=== PATIENT | female | born 1990 | race Hispanic/Latino ===

== ENCOUNTER 2018-11-11 13:43 | Emergency (ER) | payer SELFPAY ==
[2018-11-11 14:43] VITALS: BP 117/83
--- NOTE | 2018-11-11 17:50 | Emergency Department Report ---
ED Fever HPI - General Chief Complaint: Fever Stated Complaint: FLU SYMPTOMS Time Seen by Provider: 11/11/18 17:04 - History of Present Illness Initial Comments: Patient is a 28-year-old white female who presents for URI head congestion and sinus pain and pressure cough ear pain sore throat 4 days states multiple multiple family members with same symptoms including child and treated here today this patient does not have a history of asthma or bronchitis there is no wheezing there is no shortness of breath there is no chest pain or complaints bilateral ear pain aching and sinus pressure but sore throat with swallowing there is no nausea no vomiting patient is tolerating by mouth without difficulty Associated Symptoms: cough, muscle aches, sore throat. denies: abdominal pain, chest pain, nausea/vomiting, rash, shortness of breath, stiff neck, syncope, weakness ED Review of Systems ROS: Stated complaint: FLU SYMPTOMS Other details as noted in HPI Constitutional: chills, fever Eyes: denies: eye pain, eye discharge, vision change ENT: ear pain, throat pain, congestion Respiratory: cough Cardiovascular: denies: chest pain, palpitations Endocrine: no symptoms reported Gastrointestinal: denies: abdominal pain, nausea, vomiting, diarrhea Genitourinary: denies: urgency, dysuria, discharge Musculoskeletal: denies: back pain, joint swelling, arthralgia Skin: denies: rash, lesions Neurological: denies: headache, weakness, paresthesias Psychiatric: denies: anxiety, depression Hematological/Lymphatic: denies: easy bleeding, easy bruising ED Past Medical Hx - Past Medical History Previous Medical History?: Yes Additional medical history: Figueroa's Pasys - Surgical History Past Surgical History?: Yes Additional Surgical History: x 1 - Social History Smoking Status: Current Every Day Smoker Substance Use Type: None - Medications Home Medications: Home Medications Medication Instructions Recorded Confirmed Last Taken Type Hydrocodone Bit/Acetaminophen 1 each PO Q4-6H PRN #20 tablet 09/04/13 Unknown Rx [Lortab 7.5-500 mg] Ibuprofen [Motrin] 800 mg PO TID PRN #25 tablet 09/04/13 Unknown Rx Promethazine [Phenergan] 25 mg PO Q6H PRN #25 tablet 09/04/13 Unknown Rx Tamsulosin [Flomax] 0.4 mg PO QDAY #20 cap 09/04/13 Unknown Rx Ibuprofen [Motrin] 600 mg PO Q8H PRN #60 tablet 05/06/14 Unknown Rx Ondansetron [Zofran] 4 mg PO Q6HR PRN #20 tablet 05/06/14 Unknown Rx Sulfamethoxazole/Trimethoprim 1 each PO BID #20 tablet 05/06/14 Unknown Rx [Bactrim Ds] Amoxicillin/Potassium Clav 1 each PO BID #20 tablet 11/11/18 Unknown Rx [Augmentin 875-125 Tablet] Benzocaine/Menth/Cetylpyrd 1 lozenge MM Q2H PRN #3 packet 11/11/18 Unknown Rx [Cepacol X Strength] Ibuprofen 800 mg PO TID PRN #30 tablet 11/11/18 Unknown Rx ED Physical Exam - General Limitations: No Limitations General appearance: alert, in no apparent distress - Head Head exam: Present: atraumatic, normocephalic - Eye Eye exam: Present: normal appearance, PERRL, EOMI Pupils: Present: normal accommodation - ENT ENT exam: Present: mucous membranes moist - Expanded ENT Exam Expanded Ear exam: Present: other TM/Canal exam: Erythema: Left TM (erythema with effusion left ) Mouth exam: Present: normal external inspection Teeth exam: Present: normal inspection Throat exam: Positive: tonsillar erythema, tonsillomegaly, other (uvula midline no stridor no exudate ). Negative: tonsillar exudate, R peritonsillar mass, L peritonsillar mass - Neck Neck exam: Present: normal inspection, full ROM. Absent: tenderness, meningismus, lymphadenopathy, thyromegaly - Respiratory Respiratory exam: Present: normal lung sounds bilaterally. Absent: respiratory distress, wheezes, stridor, chest wall tenderness - Cardiovascular Cardiovascular Exam: Present: regular rate, normal rhythm, normal heart sounds. Absent: systolic murmur, diastolic murmur, rubs, gallop - GI/Abdominal GI/Abdominal exam: Present: soft, normal bowel sounds. Absent: distended, rebound, bruit - Rectal Rectal exam: Present: deferred - Extremities Exam Extremities exam: Present: normal inspection, full ROM. Absent: tenderness - Back Exam Back exam: Present: normal inspection, full ROM. Absent: tenderness, CVA tenderness (R), muscle spasm, paraspinal tenderness, vertebral tenderness, rash noted - Neurological Exam Neurological exam: Present: alert, oriented X3, CN II-XII intact, normal gait - Psychiatric Psychiatric exam: Present: normal affect, normal mood - Skin Skin exam: Present: warm, dry, intact, normal color. Absent: rash ED Course Vital Signs 11/11/18 14:38 Temperature 99.9 F H Pulse Rate 98 H Respiratory 18 Rate Blood Pressure 117/83 O2 Sat by Pulse 96 Oximetry ED Medical Decision Making - Medical Decision Making this is AOM /sinusitis, plan: Augmentin, ibuprofen, cepachol lezenges pt will follow up with pcp in 2-3 days , and or return to ed if symptoms worsen, pt verbalized agreement and understanding with discharge plan. Critical care attestation.: If time is entered above; I have spent that time in minutes in the direct care of this critically ill patient, excluding procedure time. ED Disposition Clinical Impression: Sinusitis Qualifiers: Sinusitis location: maxillary Chronicity: acute Recurrence: non-recurrent Qualified Code(s): J01.00 - Acute maxillary sinusitis, unspecified URI (upper respiratory infection) Qualifiers: URI type: unspecified viral URI Qualified Code(s): J06.9 - Acute upper respiratory infection, unspecified Disposition: DC- TO HOME OR SELFCARE Is pt being admited?: No Does the pt Need Aspirin: No Condition: Stable Instructions: Sinusitis (ED) Prescriptions: Amoxicillin/Potassium Clav [Augmentin 875-125 Tablet] 1 each PO BID #20 tablet Benzocaine/Menth/Cetylpyrd [Cepacol X Strength] 1 lozenge MM Q2H PRN #3 packet PRN Reason: throat pain Ibuprofen 800 mg PO TID PRN #30 tablet PRN Reason: pain fever Referrals: PRIMARY CARE,MD [Primary Care Provider] - 3-5 Days Forms: Work/School Release Form(ED) Time of Disposition: 17:53
== END 2018-11-11 18:26 | disposition home or self-care (01) ==
LOC: ED 13:43
DX: J06.9 Acute upper respiratory infection, unspecified (principal); J01.00 Acute maxillary sinusitis, unspecified; F17.200 Nicotine dependence, unspecified, uncomplicated; Z91.09 Other allergy status, other than to drugs and biological substances; Z88.6 Allergy status to analgesic agent; Z91.013 Allergy to seafood
CPT/HCPCS: 99282